=== PATIENT | female | born 2000 | race Caucasian/White ===

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

== ENCOUNTER 2022-05-06 11:56 | Emergency (ER) | payer OTHER, MEDICAID, SELFPAY ==
[2022-05-06 12:05] VITALS: BP 128/72; PULSE 78; RESP 16; TEMP 36.1; O2SAT 99
--- NOTE | 2022-05-06 12:15 | DI.RAD.S_ITS ---
PROCEDURE: XR FOOT LT MIN 3V INDICATIONS: cupids arrow fell into dorsum left foot near 4th/ 5th toes TECHNIQUE: 3 views of the foot were acquired. COMPARISON: None. FINDINGS: Bones: No displaced fracture. No dislocation. Soft tissues: Bandaging overlying the foot. No radiopaque foreign body. IMPRESSION: No acute radiographic abnormality. If there is high concern for occult injury, consider repeat radiography or cross-sectional imaging. Dictated by: Marky Cedillo M.D. on 05/06/2022 at 13:10 Approved by: Marky Cedillo M.D. on 05/06/2022 at 13:13
--- NOTE | 2022-05-06 12:22 | ED_ITS ---
HPI - Wound/Laceration General Chief Complaint: Wound/Laceration Stated Complaint: ian arrow stabbed LT foot Time Seen by Provider: 05/06/22 12:14 Source: patient Mode of arrival: Ambulatory History of Present Illness HPI narrative: 22-year-old female who is here for an injury to the top of her left foot. States this morning a piece of metal that they use for decorations on the wall fell off the wall landed on the top of her left foot sustained a cut to the top of the foot. Pain to the top of this. No other injuries. Does not want her last tetanus shot Related Data Previous Rx's Medication Instructions Recorded norgestimate-ethinyl estradiol 1 tab PO QDAY #3 packets 07/22/16 0.18 mg/0.215mg/0.25mg-35 mcg(28)tablet (Ortho Tri-Cyclen (28)) Allergies Allergy/AdvReac Type Severity Reaction Status Date / Time lidocaine [From EMLA] AdvReac Unknown RASH Verified 05/06/22 12:08 NSAIDS (Non-Steroidal AdvReac Unknown Verified 05/06/22 12:32 Anti-Inflamma prilocaine [From EMLA] AdvReac Unknown RASH Verified 05/06/22 12:08 Review of Systems Musculoskeletal Musculoskeletal: Reports system reviewed and no additional complaints, except as documented Integumentary/Breasts Skin/Breast: Reports system reviewed and no additional complaints, except as documented Neurologic Neurologic: Reports system reviewed and no additional complaints, except as documented Hematologic/Lymphatic On Anticoagulants: No Patient History Medical History 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) History of Wilms' tumor Moderate episode of recurrent major depressive disorder (07/29/17) Morbid obesity with BMI of 40.0-44.9, adult Polycystic ovaries (07/24/16) Pre-diabetes Surgical History Status post labral repair of shoulder Status post myringotomy with insertion of tube Status post tonsillectomy and adenoidectomy Wilms' tumor Family History Father Bipolar disorder Mother Gestational diabetes PCOS (polycystic ovarian syndrome) Social History Smoking Status: Former smoker Smoking Status: Former smoker tobacco type: vaping alcohol intake frequency: holidays/special occasions only Substance Use Type: marijuana Exam Initial Vital Signs Initial Vital Signs: Vital Signs Temperature 97.0 F L 05/06/22 12:05 Pulse Rate 78 05/06/22 12:05 Respiratory Rate 16 05/06/22 12:05 Blood Pressure 128/72 05/06/22 12:05 Pulse Oximetry 99 05/06/22 12:05 Oxygen Delivery Method 05/06/22 12:05 Cardio Pulses: dorsalis pedis present on the left Skin Other: 1 cm irregular laceration to the dorsum of the left foot at the base of the 4th and 5th toes Neuro Sensory Exam: no sensory deficits noted Extrem Other: Pain to palpation of the top of left foot. Procedures Laceration Repair Laceration 1: Site: lower extremity Side (If applicable): left Size (cm): 1 Description: irregular Depth: simple, single layer Local Anesthetic: bupivacaine 0.25% Amount of anesthesia used (mL): 5 Pre-repair: wound explored and deep structures intact Skin layer closed with: nylon Skin layer suture size: 4-0 Number of sutures: 3 Technique: simple, interrupted Course Orders Ordered: ED Orders 05/06/22 12:15 XR foot LT min 3V Stat Discontinued Medications Acetaminophen (Acetaminophen 325 Mg Tablet) 975 mg PO NOW ONE Stop: 05/06/22 12:32 Last Admin: 05/06/22 12:37 Dose: 975 mg Documented By: [place] Bupivacaine HCl (Bupivacaine 0.25% Mdv) 1 ml INJ INTRA-OP ONE Stop: 05/06/22 12:29 Last Admin: 05/06/22 13:13 Dose: Not Given Documented By: [place] Bupivacaine HCl (Bupivacaine 0.25% (Pf) Vial) 30 ml INJ NOW ONE Stop: 05/06/22 13:16 Last Admin: 05/06/22 13:06 Dose: 5 ml Documented By: [place] Diphtheria/Tetanus/Acell Pertussis (Tet,Diph,Pertuss(Acell),Vac/Pf 0.5 Ml Syringe) 0.5 ml IM .ONCE ONE Stop: 05/06/22 12:16 Last Admin: 05/06/22 12:31 Dose: 0.5 ml Documented By: [place] Ibuprofen (Ibuprofen 400 Mg Tablet) 800 mg PO NOW ONE Stop: 05/06/22 12:16 Last Admin: 05/06/22 12:31 Dose: Not Given Documented By: BRITTANY Lidocaine HCl (Lidocaine 2% Inj Mdv 20ml) 1 ml SUBCUT NOW ONE Stop: 05/06/22 12:23 Last Admin: 05/06/22 12:29 Dose: Not Given Documented By: [place] Vital Signs Vital signs: Vital Signs - 8 hr 05/06/22 12:05 Temperature 97.0 F L Pulse Rate 78 Respiratory Rate 16 Blood Pressure 128/72 Pulse Oximetry 99 Oxygen Delivery Method Room Air MDM - Wound/Laceration Imaging Data Extremity x-ray #1: Radiologist's Impression: [address] [address] XRay Report Signed Patient: Jonathan Louis MR#: [id number] : 2000 Acct:[id number] Age/Sex: 22 / F Date of Service: 05/06/22 Loc: ED Accession Number: [id number] ?? Procedure: XR foot LT min 3V Ordering Provider: Gregorio Caceres D.O. PROCEDURE:? XR FOOT LT MIN 3V ? INDICATIONS:? cupids arrow fell into dorsum left foot near 4th/ 5th toes ? TECHNIQUE:? 3 views of the foot were acquired.? ? COMPARISON:? None. ? FINDINGS:? ? Bones:? No displaced fracture.? No dislocation. ? Soft tissues:? Bandaging overlying the foot.? No radiopaque foreign body. ? ? IMPRESSION:? No acute radiographic abnormality.? If there is high concern for occult injury, consider repeat radiography or cross-sectional imaging. ? ? Dictated by: Marky Cedillo M.D. on 05/06/2022 at 13:10 ? ? Approved by: Marky Cedillo M.D. on 05/06/2022 at 13:13? [facility] Narrative Medical decision making narrative: No fractures noted on the x-rays. Her tetanus shot was updated. Laceration was closed as described above. She was given care instructions and return precautions. She expressed understanding and agreement. Discharge Plan Departure Patient Disposition: Home Clinical Impression: Foot laceration Instructions: DI for Laceration Repair Activity Restrictions/Additional Instructions: The stitches do need to be removed in 7-10 days. This can be done by either your primary doctor or walk-in clinic. Until then keep it covered with a bandage and also use topical antibiotic ointment. Your tetanus shot was updated today. Return emergency department for any new or worsening symptoms Prescriptions: No Action norgestimate-ethinyl estradiol [Ortho Tri-Cyclen (28)] 0.18/0.215/0.25 mg-35 mcg (28) tablet 1 tab PO QDAY Qty: 3 3RF Referrals: Stacie Claire DO [Primary Care Provider] -
[2022-05-06] MEDS: TET,DIPH,PERTUSS(ACELL),VAC/PF 0.5 ML SYRINGE IM (12:31)
[2022-05-06] MEDS: ACETAMINOPHEN 325 MG TABLET 975 MG PO (12:37)
[2022-05-06] MEDS: BUPIVACAINE 0.25% (PF) VIAL 30 ML INJ (13:06)
[2022-05-06] MEDS: BACITRACIN OINT 0.9 GM PCKT 1 APPLIC TOP (13:43)
--- NOTE | 2022-05-06 13:45 | PC.NURSE ---
bacitracin and bandaid placed over patients laceration repair. patient tolerated well. Dr. Nicki east.
[2022-05-06 13:51] VITALS: BP 129/65; PULSE 65; RESP 16; O2SAT 98
== END 2022-05-06 13:52 | disposition home or self-care (01) ==
PROVIDERS: Emergency Provider Emergency Medicine; Family Provider Family Medicine; PCP Family Medicine
DX: S91.312A Laceration without foreign body, left foot, initial encounter (principal); W26.9XXA Contact with unspecified sharp object(s), initial encounter; Z23 Encounter for immunization
CPT/HCPCS: 12001; 73630; 90471; 99283; 99284; 90715

== ENCOUNTER → 2022-06-05 13:12 | Outpatient (CLI) | payer OTHER, MEDICAID, SELFPAY ==
[2022-06-05 14:07] LABS: Influenza A - CEPHEID Flu A POSITIVE (NEGATIVE); Influenza B - CEPHEID Flu B NEGATIVE (NEGATIVE); Respiratory Syncytial Virus Negative (Negative)
[2022-06-05 14:20] LABS: COVID-19 CEPHEID 4-PLEX PCR Negative (Negative)
== END ==
PROVIDERS: Family Provider Family Medicine; PCP Family Medicine; Visit Provider Nurse Practitioner Family
DX: R09.81 Nasal congestion (principal); R50.9 Fever, unspecified
CPT/HCPCS: 0241U

== ENCOUNTER → 2022-08-13 09:15 | Outpatient (CLI) | payer OTHER, MEDICAID, SELFPAY ==
[2022-08-13 10:17] LABS: Add Manual Diff / Slide Review NO; Basophils Absolute Auto 0 /uL (0-100); Basophils Percent Auto 0.2 % (0-2); Eosinophils Absolute Auto 100 /uL (0-450); Eosinophils Percent Auto 1.3 % (2-4); Hematocrit 40.8 % (36-46); Hemoglobin 13.4 g/dL (12.0-16.0); Lymphocytes Absolute Auto 2200 /uL (1100-4500); Lymphocytes Percent Auto 28.7 % (25-40); Mean Corpuscular HGB Conc 32.8 % (30-36); Mean Corpuscular Hemoglobin 26.7 PG (26-34); Mean Corpuscular Volume 81.3 fL (80-100); Monocytes Absolute Auto 500 /uL (0-900); Monocytes Percent Auto 6.3 % (3-14); Neutrophils Absolute Auto 4900 /uL (1500-7000); Neutrophils Percent Auto 63.5 % (50-75); Platelet Count 321 X10^3/uL (150-400); Red Blood Cell Count 5.02 X10^6/uL (4.0-5.2); White Blood Cell Count 7.7 X10^3/uL (4.5-11.0)
[2022-08-13 10:48] LABS: Alanine Aminotransferase 58 IU/L (<35); Albumin 4.5 g/dL (3.5-5.0); Albumin Globulin Ratio 1.4 (1.0-2.8); Alkaline Phosphatase 72 U/L (38-126); Aspartate Aminotransferase 39 IU/L (14-36); Bilirubin Total 0.6 mg/dL (0.2-1.3); Blood Urea Nitrogen 13 mg/dL (7-17); Calcium 9.8 mg/dL (8.4-10.2); Carbon Dioxide 28 mmol/L (22-32); Chloride 102 mmol/L (98-107); Cholesterol 184 mg/dL (140-199); Estimated Glomerular Filt Rate > 60 mL/min (>60); Globulin 3.3 g/dL (1.7-4.1); Glucose 108 mg/dL (70-100); HDL Cholesterol 35 mg/dL (40-60); HEMOLYSIS < 15 (0-50); LDL Cholesterol Calculated 104 mg/dL (<100); Potassium 4.7 mmol/L (3.4-5.1); Sodium 138 mmol/L (137-145); Total Protein 7.8 g/dL (6.3-8.2); Triglycerides 223 mg/dL (35-150)
[2022-08-13 11:13] LABS: TSH w/ Reflex to FT4 1.46 uIU/mL (0.47-4.68)
[2022-08-13 11:31] LABS: Hemoglobin A1C% w Est Avg Glu 5.8 % (4.0-6.0)
== END ==
PROVIDERS: Family Provider Family Medicine; PCP Family Medicine; Referring Provider Family Medicine; Visit Provider Family Medicine
DX: E28.2 Polycystic ovarian syndrome (principal); R73.03 Prediabetes; E66.01 Morbid (severe) obesity due to excess calories; Z68.41 Body mass index [BMI] 40.0-44.9, adult
CPT/HCPCS: 36415; 80053; 80061; 83036; 84443; 85025